=== PATIENT | female | born 1990 | race Caucasian/White ===

== ENCOUNTER 2020-02-27 00:21 | Emergency (ER) | payer OTHER, SELFPAY ==
[~2020-02-27] VITALS: Ht 160 cm; Wt 55.8 kg
[2020-02-27 00:25] VITALS: BP_SYST 116
== END 2020-02-27 01:09 | disposition home or self-care (01) ==
LOC: SED 00:21
DX: U07.1 COVID-19 (principal); R05 Cough
CPT/HCPCS: 36415; 99283